=== PATIENT | female | born 1965 | race Caucasian/White ===

== ENCOUNTER 2021-05-26 15:33 | Emergency (ER) | payer BC, SELFPAY ==
[2021-05-26 16:10] VITALS: BP 121/93; PULSE 80; RESP 18; TEMP 36.8; O2SAT 98; BMI 40.1
[2021-05-26 16:41] VITALS: BP 121/93; PULSE 80; RESP 18; TEMP 36.8; O2SAT 98
--- NOTE | 2021-05-26 16:46 | HMH.EDUTC ---
[facility] [place] Disposition Clinical Impression: Bronchitis Sinusitis Qualifiers: Sinusitis location: unspecified location Chronicity: unspecified Qualified Code(s): J32.9 - Chronic sinusitis, unspecified Disposition: Home, Self-Care Condition on Discharge: Good Instructions: Sinusitis, DI for Sinusitis, Amoxicillin and Clavulanic Acid Additional Instructions: ? Start antibiotic today. Be sure to complete entire prescription even if feeling better ? Monitor temp. Tylenol every 4 hours as needed and / or ibuprofen every 6 hours as needed ( As long as your primary care physician has told you that it ok to take both. For fever/aches/pains ER if no less than 101 despite Tylenol or Motrin ? Humidifier/vaporizer or hot steamy shower ? Inhaler every 4-6 hours as needed like we discussed. If unsure how to use it, ask pharmacist to demonstrate how. Should help open airways and improve cough, wheezing, and shortness of breath ? Mucinex during the day for your cough and cough suppressant only at night. Be sure to drink lots of water. Insurance may not cover a prescriptions for mucinex. Might be cheaper to get 400mg tablets and take 2 tablet in the morning, mid-day and evening with lots of water. *Promethazine DM cough syrup will cause drowsiness. Use only at night. No driving, operating machinery or caring for small children after taking it *Tessalon Perles will not cause drowsiness but use at bedtime to help stop cough so that you may get some rest. *Start steroid today. Helps with inflammation therefore, cough and wheezing. Follow directions on the package. Reviewed side effects. Patient reports taking them before. Follow up IMMEDIATELY for new or worsening of symptoms OR no noticeable improvement over the next 48-72 hours. 911 immediately for any life threatening symptoms such as chest pain or difficulty breathing Prescriptions: guaiFENesin [Mucinex 600mg tablet] 600 mg PO Q12HP PRN #20 tab.er.12h PRN Reason: Congestion Transmission Status: Received by [facility] #[id number] Amoxicillin/Potassium Clav [Augmentin 875-125 Tablet] 1 tab PO Q12H 7 Days #14 tab Transmission Status: Received by [facility] #[id number] Referrals: Jay Guillaume [Primary Care Provider] - As needed Time of Disposition: 17:03 Medical Decision Making - Reyes Inquiry Pt receiving controlled substance: No Reyes was queried for this patient: No Vital Signs: 05/26/21 16:10 05/26/21 16:41 Temperature 98.2 F 98.2 F Temperature Source Oral Pulse Rate 80 Pulse Rate [Right Brachial] 80 Respiratory Rate 18 18 Blood Pressure 121/93 H Blood Pressure [Right Arm] 121/93 H Blood Pressure Mean [Right Arm] 102 Blood Pressure Source [Right Arm] Automatic Cuff Blood Pressure Position [Right Arm] Sitting 02 Sat by Pulse Oximetry 98 Oxygen Delivery Method Room Air Orders (Tests/Meds): ED MEDICATIONS Discontinued Medications Generic Name Dose Route Start Last Admin Trade Name Freq PRN Reason Stop Dose Admin Methylprednisolone Sodium Succinate 125 mg 05/26/21 17:02 05/26/21 17:10 Methylprednisolone Sod Succ 125mg Vial IM 05/26/21 17:03 125 mg ONCE ONE Administration Medical Decision Narrative: Patient state that she has taken Solu Medrol in the past without reaction or complications [facility] HPI - General Stated complaint: cold, tightness in chest Time Seen by Provider: 05/26/21 16:46 Mode of Arrival: Ambulatory Source of Information: Patient Limitations: No Limitations Description of Symptoms (Recalled from Triage Doc. by RN): PATIENT C/O CHEST CONGESTION/TIGHTNESS SINCE TUESDAY NIGHT HEENT Symptoms (Recalled from RN notes): No Resp Symptoms (Recalled from RN notes): Yes Skin Symptoms (Recalled from RN notes): No MS Symptoms (Recalled from RN notes): No Functional Status (Recalled from RN notes): WNL - History of Present Illness Provider Complaint: Patient state that she has been having sinus pain and pressure for over a
== END 2021-05-26 17:21 | disposition home or self-care (01) ==
PROVIDERS: Emergency Provider Nurse Practitioner; PCP Family Medicine
DX: J40 Bronchitis, not specified as acute or chronic (principal); J32.9 Chronic sinusitis, unspecified
CPT/HCPCS: 96372; 99202; G0463

== ENCOUNTER 2021-09-27 09:29 | Emergency (ER) | payer BC, SELFPAY ==
--- NOTE | 2021-09-27 11:19 | HMH.EDUTC ---
[facility] [place] Clinical Impression: Otitis media Qualifiers: Otitis media type: suppurative Chronicity: acute Laterality: bilateral Recurrence: non-recurrent Spontaneous tympanic membrane rupture: without spontaneous rupture Qualified Code(s): H66.003 - Acute suppurative otitis media without spontaneous rupture of ear drum, bilateral BPPV (benign paroxysmal positional vertigo) Qualifiers: Laterality: left Qualified Code(s): H81.12 - Benign paroxysmal vertigo, left ear Disposition: Home, Self-Care Condition on Discharge: Good Instructions: Middle Ear Infection, DI for Sinusitis, Benign Paroxysmal Positional Vertigo, Meclizine Additional Instructions: Drink plenty of fluids. Take tylenol or ibuprofen for pain or fever. Take the medications as directed. Follow up with your regular doctor. Your dizziness and other symptoms should get better with the medications, but make sure you follow up regardless. GO TO THE ER FOR ANY WORSENING SYMPTOMS The meclizine (antivert) will make you drowsy, so don't drive or operate heavy machinery after taking it. Prescriptions: Meclizine HCl [Antivert 25mg tablet] 25 mg PO Q6HP PRN #30 tab PRN Reason: Dizziness [facility] methylPREDNISolone [Medrol] 4 mg PO DIRECTED 6 Days #21 packet Transmission Status: Received by [email or web address] Azithromycin [Z-Neptali 250mg Tab*] 250 mg PO UD DOSE PK #6 tab Transmission Status: [facility] Referrals: Jay Guillaume [Primary Care Provider] - Forms: Work/School Release Time of Disposition: 11:52 Medical Decision Making - Medical Records Medical records reviewed: No: I reviewed the patient's medical records. - Reyes Inquiry Pt receiving controlled substance: No Vital Signs: 09/27/21 11:29 09/27/21 12:03 Temperature 97.6 F 97.6 F Temperature Source Temporal Artery Scan Pulse Rate 75 Pulse Rate [Left] 75 Respiratory Rate 20 20 Blood Pressure 137/70 Blood Pressure [Right Arm] 137/70 Blood Pressure Mean [Right Arm] 92 02 Sat by Pulse Oximetry 97 [facility] [place] - General Stated complaint: dizziness Time Seen by Provider: 09/27/21 11:19 - History of Present Illness Provider Complaint: She states that she has had bilateral ear pain, sinus congestion and dizziness for the past 3 days. She has had vertigo before and that is what she thinks is going on, but her symptoms were not this bad before. She denies any head ache, weakness, vision changes or other complaints. - Related Data Home Medications Medication Instructions Recorded Confirmed Milnacipran HCl [Savella] 25 mg PO DAILY 02/27/18 02/27/18 Triamterene/Hydrochlorothiazid 1 each PO DAILY 02/27/18 02/27/18 [Maxzide-25 tablet] Venlafaxine HCl [Effexor Xr] 37.5 mg PO DAILY 02/27/18 02/27/18 atenoloL [Atenolol 25mg Tab] 25 mg PO DAILY 02/27/18 02/27/18 estradioL [Estrace 1mg tablet] 1 mg PO DAILY 02/27/18 02/27/18 Previous Rx's Medication Instructions Recorded Brompheniramine/Pseudoephed/Dm 10 ml PO QID PRN #240 ml 02/27/18 [Bromfed DM Cough Syrup 5mL] Amoxicillin/Potassium Clav 1 tab PO Q12H 7 Days #14 tab 05/26/21 [Augmentin 875-125 Tablet] guaiFENesin [Mucinex 600mg tablet] 600 mg PO Q12HP PRN #20 tab.er.12h 05/26/21 Azithromycin [Z-Neptali 250mg Tab*] 250 mg PO UD DOSE PK #6 tab 09/27/21 Meclizine HCl [Antivert 25mg 25 mg PO Q6HP PRN #30 tab 09/27/21 tablet] methylPREDNISolone [Medrol] 4 mg PO DIRECTED 6 Days #21 09/27/21 packet Allergies Allergy/AdvReac Type Severity Reaction Status Date / Time No Known Allergies Allergy Verified 02/27/18 09:20 [facility] History - Hepatitis A Screen Attestation statement:: This patient has been screened for Hepatitis A risk factors. I have reviewed the patient's past medical history: Yes Medical History: Reports:: Depression, Hypertension, Migraine Denies:: Diabetes Mellitus Type 1, Diabetes Mellitus Type 2 Othe
[2021-09-27 11:29] VITALS: BP 137/70; PULSE 75; RESP 20; TEMP 36.4; O2SAT 97; BMI 38.2
[2021-09-27 12:03] VITALS: BP 137/70; PULSE 75; RESP 20; TEMP 36.4
== END 2021-09-27 12:04 | disposition home or self-care (01) ==
PROVIDERS: Emergency Provider Nurse Practitioner Family; PCP Family Medicine
DX: H66.003 Acute suppurative otitis media without spontaneous rupture of ear drum, bilateral (principal); H81.12 Benign paroxysmal vertigo, left ear; G43.709 Chronic migraine without aura, not intractable, without status migrainosus; I10 Essential (primary) hypertension; F33.1 Major depressive disorder, recurrent, moderate
CPT/HCPCS: 99202; G0463

== ENCOUNTER 2022-05-03 04:35 | Emergency (ER) | payer SELFPAY ==
[2022-05-03] VITALS (12 sets, daily range): BP systolic 104–144; BP diastolic 54–81; PULSE 67–77; RESP 12–21; TEMP 36.7; O2SAT 96–99; BMI 28.2; BMI 36.3
--- NOTE | 2022-05-03 04:36 | XR_ITS ---
PROCEDURE INFORMATION: Exam: XR Chest Exam date and time: 05/03/2022 4:49 AM Age: 56 years old Clinical indication: Sternal or substernal pain; Additional info: Cp TECHNIQUE: Imaging protocol: Radiologic exam of the chest. Views: 2 views. COMPARISON: No relevant prior studies available. FINDINGS: Lungs: 6 mm nodular density in the right lung base. No acute consolidation or airspace disease. Pleural spaces: No pleural effusion or pneumothorax. Heart/Mediastinum: No acute findings or cardiomegaly. Bones/joints: No acute findings. IMPRESSION: 1. No acute cardiopulmonary findings. 2. 6 mm nodular density in the right lung base. Comparison with old studies if available is recommended or follow-up document stability.
--- NOTE | 2022-05-03 04:37 | ECG_ITS ---
APPROVED REPORT Exam: Resting ECG HR:74 bpm ECG Measurements Heart Rate 74 AXES TN 160 P 55 QRSd 98 QRS 66 QT 411 T 38 QTc 438 Conclusion SINUS RHYTHM Isolated Q in III BORDERLINE ECG UNCONFIRMED REPORT Electronically signed by : Dao Angeles MD 05/04/2022 21:10:28
[2022-05-03 04:48] LABS: Coronavirus 19, PCR Not Detected (NotDetected); Influenza A, PCR Not Detected (NotDetected); Influenza B, PCR Not Detected (NotDetected)
[2022-05-03 04:58] LABS: Alanine Aminotransferase 23 U/L (12-78); Albumin Level 3.4 g/dl (3.5-5.0); Alkaline Phosphatase 81 U/L (38-126); Anion Gap 8.9 mEq/L (5-15); Aspartate Amino Transferase 31 U/L (14-36); Bilirubin,Unconjugated 0.3 mg/dL (0.0-1.1); Blood Urea Nitrogen 18 mg/dl (7-17); Calcium 8.8 mg/dl (8.4-10.2); Carbon Dioxide 27 mmol/L (22.0-30.0); Chloride 106 mmol/L (98-107); Creatinine Clearance Estimated 148 mL/min (50-200); Estimated Glomerular Filt Rate 87 ml/min (>60); GFR (African American) 106 ML/MIN (>60); Glucose 97 mg/dl (74-100); Magnesium 1.5 mg/dl (1.6-2.3); Potassium 3.9 mmoL/L (3.5-5.1); Sodium 138 mmol/L (136-145)
[2022-05-03 05:02] LABS: Bilirubin,Direct < 0.1 mg/dl (0.0-0.4); Bilirubin,Total < 0.1 mg/dl (0.2-1.3)
[2022-05-03 05:03] LABS: C-Reactive Protein 5.9 mg/L (0-4)
[2022-05-03 05:12] LABS: NT Pro Brain Natriuretic Pep. 220 pg/mL (0-125)
[2022-05-03 05:12] LABS: Basophils # 0.4 K/mm3 (0-0.2); Basophils % 6.6 % (0.1-2.0); Eosinophils # 0.4 K/mm3 (0.0-0.4); Eosinophils % 5.3 % (0.1-12.0); Hematocrit 40.4 % (37.0-47.0); Hemoglobin 13.9 g/dL (12.2-16.2); Lymphocytes % 30.5 % (10-50); Mean Corpuscular HGB Conc 34.4 g/dL (31.8-35.4); Mean Corpuscular Hemoglobin 30.1 pg (27.0-31.2); Mean Corpuscular Volume 87.6 fl (81-99); Mean Platelet Volume 9.4 fl (7.4-10.4); Monocytes # 0.6 K/mm3 (0.1-1.0); Neutrophils # 3.7 K/mm3 (1.8-7.8); Neutrophils % 55.1 % (37.0-80.0); Platelet Count 250 K/mm3 (142-424); Red Blood Count 4.61 M/mm3 (4.20-5.40); Red Cell Distribution Width 12.4 % (11.5-17.5); White Blood Count 6.6 K/mm3 (4.8-10.8)
[2022-05-03 05:16] LABS: Troponin I < 0.01 ng/ml (0.00-0.034)
[2022-05-03 05:17] LABS: Procalcitonin 0.066 ng/mL (0.0-2.0)
[2022-05-03 05:40] LABS: Erythrocyte Sedimentation Rate 14 mm/hr (0-30)
--- NOTE | 2022-05-03 07:08 | HMH.EDCP ---
ED Disposition Clinical Impression: Chest pain Qualifiers: Chest pain type: precordial pain Qualified Code(s): R07.2 - Precordial pain Disposition: Home, Self-Care Condition on Discharge: Good Instructions: DI for Chest Pain Additional Instructions: see card next week Prescriptions: Aspirin [Aspirin 81mg EC Tab] 81 mg PO DAILY #30 tab Transmission Status: Pending to [facility] Pantoprazole Sodium [Protonix 40mg tablet] 40 mg PO HS #30 tab Transmission Status: Pending to [facility] Referrals: Jay Guillaume [Primary Care Provider] - - Critical Care Critical Care Time: No Attestation: On 05/03/22, the high probability of a clinically significant, sudden or life threatening deterioration of the following system(s) required my full and direct attention, intervention and personal management. The time I documented below is in addition to time spent performing reported procedures but includes the following listed in this critical care notation. Medical Decision Making - Medical Records Medical records reviewed: Yes: I reviewed the patient's medical records. - Reyes Inquiry Pt receiving controlled substance: No Vital Signs: 05/03/22 04:41 05/03/22 05:21 05/03/22 05:30 Temperature 98.1 F Temperature Source Oral Pulse Rate 70 68 Pulse Rate [Apical] 77 Respiratory Rate 18 14 15 Blood Pressure 115/73 118/71 Blood Pressure [Right Arm] 144/81 H Blood Pressure Mean Blood Pressure Mean [Right Arm] 102 Blood Pressure Source [Right Arm] Automatic Cuff Blood Pressure Position [Right Arm] Sitting 02 Sat by Pulse Oximetry 99 99 96 Oxygen Delivery Method Room Air Room Air Room Air 05/03/22 06:00 05/03/22 06:30 05/03/22 07:00 Temperature Temperature Source Pulse Rate 70 67 70 Pulse Rate [Apical] Respiratory Rate 17 12 15 Blood Pressure 122/74 104/54 L 107/67 L Blood Pressure [Right Arm] Blood Pressure Mean Blood Pressure Mean [Right Arm] Blood Pressure Source [Right Arm] Blood Pressure Position [Right Arm] 02 Sat by Pulse Oximetry 97 97 97 Oxygen Delivery Method Room Air Room Air Room Air 05/03/22 07:30 05/03/22 08:30 05/03/22 09:00 Temperature Temperature Source Pulse Rate 72 77 67 Pulse Rate [Apical] Respiratory Rate 16 16 Blood Pressure 113/74 108/71 L 115/69 Blood Pressure [Right Arm] Blood Pressure Mean 82 80 82 Blood Pressure Mean [Right Arm] Blood Pressure Source [Right Arm] Blood Pressure Position [Right Arm] 02 Sat by Pulse Oximetry 97 96 96 Oxygen Delivery Method Room Air Room Air - Lab Data Lab results reviewed: Yes: I reviewed the patient's lab results. Lab Results 05/03/22 04:30: WBC 6.6, RBC 4.61, Hgb 13.9, Hct 40.4, MCV 87.6, MCH 30.1, MCHC 34.4, RDW 12.4, Plt Count 250, MPV 9.4, Neut % (Auto) 55.1, Lymph % (Auto) 30.5, [place] % (Auto) 9.0, Eos % (Auto) 5.3, Baso % (Auto) 6.6 H, Neut # (Auto) 3.7, Lymph # (Auto) 2.0, [place] # (Auto) 0.6, Eos # (Auto) 0.4, Baso # (Auto) 0.4 H, ESR 14 05/03/22 04:30: SARS-CoV-2 (PCR) Not detected, Influenza A Untype (PCR) Not detected, Influenza Type B (PCR) Not detected 05/03/22 04:38: Sodium 138, Potassium 3.9, Chloride 106, Carbon Dioxide 27, Anion Gap 8.9, BUN 18 H, Creatinine 0.70, Estimated Creat Clear 148, Estimated GFR 87, Est GFR ( Amer) 106, Glucose 97, Calcium 8.8, Magnesium 1.5 L, Total Bilirubin < 0.1 L, Direct Bilirubin < 0.1, Conjugated Bilirubin 0.0, Indirect Bilirubin 0.0, Unconjugated Bilirubin 0.3, AST 31, ALT 23, Alkaline Phosphatase 81, Troponin I < 0.01, C-Reactive Protein 5.9 H, NT-Pro-B Natriuret Pep 220 H, Total Protein 6.0 L, Albumin 3.4 L, Procalcitonin 0.066 05/03/22 07:51: Troponin I < 0.01 Result diagrams: 05/03/22 04:30 05/03/22 04:38 Orders (Tests/Meds): ED MEDICATIONS Discontinued Medications Generic Name Dose Route Start Last Admin Trade Name Freq PRN Reason Stop Dose Admin Aspirin 324 mg 05/03/22 04:38
--- NOTE | 2022-05-03 07:34 | CA_ITS ---
APPROVED REPORT EXAM: Comprehensive 2D, Doppler, and color-flow Echocardiogram Hazardous Substances Scientist: Jessenia Velasco RDCS Ht: 5 ft 6 in Wt: 225lbs BSA: 2.10 BP: 144/81 mmHg Indications: CP,HTN 2D Dimensions LVOT 1.65 cm (M/F) 1.5-2.5 M-Mode Dimensions RVDd 2.33 cm (0.9-2.6) LA Diam 4.04 cm (1.9-4.0) LVDd 4.79 cm (3.5-5.7) Ao Diam 2.62 cm (2.0-3.7) LVDs 3.10 cm (3.5-5.7) IVSd 1.17 cm (0.6-1.1) PWd 0.84 cm (0.6-1.1) EF (Teich) 64.60% FS 35.30% EDV (Teich) 107.00 mL ESV (Teich) 37.90 mL LV Diastology E Decel Time 227.00 (160-240 msec) E/A Ratio 0.8 MED E' 4.50 (< 7 cm/sec) E'/MED E' Ratio 12.96 (>14) LAT E' 8.40 (<10 cm/sec) E/LAT E' Ratio 6.94 (>14) Mitral Valve MV E Max Darnell. 58.00 (40-130 cm/s) MV A Velocity 73.00 (40-130 cm/s) E/A Ratio 0.79 MV Decel. Time 227.00 (160-240 ms) MV PHT 66.00 ms Left Ventricle Left atrium is mildly enlarged, ventricle is normal size, mild concentric left ventricular hypertrophy, estimated ejection fraction 55% with no regional wall motion abnormality, grade 1 diastolic dysfunction seen without tissue Doppler evidence of raise left atrial pressure. Right Ventricle Right atrium and right ventricle are normal size and contractility. Aortic Valve Aortic valve is minimally thickened and fibrosed there is no aortic stenosis or aortic insufficiency. Mitral Valve Mitral valve grossly normal, there is trace mitral regurgitation. Tricuspid Valve Tricuspid valve grossly normal, there is trace tricuspid regurgitation, tricuspid regurgitation jet velocity is inadequate for calculation of the right ventricular systolic pressure. Pulmonic Valve Pulmonic valve is poorly visualized. Great Vessels Aortic root is normal size. Inferior vena cava is normal size with normal inspiratory collapse. Pericardium No significant pericardial effusion noted. Conclusion 1. Mildly enlarged left atrium, normal left ventricular size mild concentric left ventricular hypertrophy, estimated ejection fraction 55% with no regional wall motion abnormality, grade 1 diastolic dysfunction seen without tissue Doppler evidence of raise left atrial pressure. 2. Trace mitral and tricuspid regurgitation. 3. No significant pericardial effusion. 4. Inferior vena cava is poorly visualized. Electronically signed by : Kei Smith MD 05/03/2022 19:57:30
--- NOTE | 2022-05-03 07:46 | PC.NURSE ---
rounded on pt at this time, pt sitting up on side of bed, family at BS. Pt states no needs at this time. Advised pt we would be getting second set of heart enzymes soon.
--- NOTE | 2022-05-03 07:53 | PC.NURSE ---
second troponin drawn and sent to lab at this time
--- NOTE | 2022-05-03 08:03 | PC.NURSE ---
per dr. martinez cardiololgy staff is aware of consult order.
--- NOTE | 2022-05-03 08:03 | PC.NURSE ---
notified pt of echo order and that staff would be down soon for that test, explained to pt it is an ultrasound of heart. Pt in shirt, pt reports she is okay in her shirt instead of gown. Also notified pt of cardiology consult and that cardiology staff would be down to see.
--- NOTE | 2022-05-03 08:17 | PC.NURSE ---
CV lab staff at for echo.
[2022-05-03 08:26] LABS: Troponin I < 0.01 ng/ml (0.00-0.034)
--- NOTE | 2022-05-03 08:40 | PC.NURSE ---
MARIO Silva at BS
--- NOTE | 2022-05-03 08:53 | PC.NURSE ---
jesus garrido saw pt states he will get ahliliam of dr. martinez to notify him of cardiology recommendations for pt.
--- NOTE | 2022-05-03 09:14 | HMH.CNCARD ---
History of Present Illness Consult date: 05/03/22 Requesting physician: Henry Mendez Consult reason: chest pain Chief complaint: Left arm numbness, left shoulder pain Additional Medical History:: 1. Hypertension 2. Depression 3. Family history of early heart disease in her mother in her mid 30s 4. Overweight History of present illness: 56-year-old white female presented to the emergency department for evaluation of left arm numbness with associated left shoulder blade discomfort described as sharp in nature. Patient denies any anterior chest discomfort, nausea, vomiting or diaphoresis. Symptoms continued for about an hour prior to arrival. She was given nitroglycerin and transdermal nitroglycerin with slow improvement in symptoms. She does have a history of degenerative disc disease in her lumbar area but is unaware of any issues with her neck or prior cervical radiculopathy. Work-up in the ER reveals troponins normal x2, EKG sinus with no acute ST segment changes and preliminary echocardiogram today shows preserved ejection fraction with no significant valve disease or wall motion abnormalities. She does complain of a headache from the nitroglycerin. Non-smoker Nondrinker Nondiabetic No history of treatment for hyperlipidemia [facility] History Medical History: Reports:: Depression, Hypertension, Migraine Denies:: Diabetes Mellitus Type 1, Diabetes Mellitus Type 2 *Have you ever received a pneumonia vaccine?: No *Have you received a flu vaccine this season?: No Other Surgeries: Yes: Cholecystectomy, Other (hysterectomy, exploratory reproductive) - *Social History Smoking Status: Never smoker Alcohol Intake: never *Occupational Status:: other *Travel in the last 8 weeks: Inside the [place] - Psychiatric History Pschychiatric History:: Reports:: Depression Family Hx:: Coronary Artery Disease Meds Home Medications Medication Instructions Recorded Confirmed Type Buspirone HCl [Buspar 10mg 10 mg PO BID 05/03/22 05/03/22 History tablet] Diclofenac Sodium [Diclofenac 75mg 75 mg PO BID 05/03/22 05/03/22 History Tab] Fluoxetine HCl [Prozac 20mg 20 mg PO DAILY 05/03/22 05/03/22 History Capsule] Gabapentin 300 mg PO DAILY 05/03/22 05/03/22 History Glucosam/Damon-Msm1/C/Vladimir/Bosw 1 each PO DAILY 05/03/22 05/03/22 History [Osteo Bi-Flex Caplet] Hydrocodone/Acetaminophen 1 each PO Q6HP PRN 05/03/22 05/03/22 History [Hydrocodone-Acetamin 5-325 mg] Magnesium Sulfate 100 mg PO DAILY 05/03/22 05/03/22 History Phentermine HCl 37.5 mg PO DAILY 05/03/22 05/03/22 History Promethazine HCl [Phenergan 25mg 25 mg PO Q6HP PRN 05/03/22 05/03/22 History tab] SUMAtriptan succinate [Imitrex] 25 mg PO Q6HP PRN 05/03/22 05/03/22 History Terbinafine HCl [Athlete's Foot AF] 15 gm TP DAILY 05/03/22 05/03/22 History Tizanidine HCl 2 mg PO DAILY 05/03/22 05/03/22 History Triamterene/Hydrochlorothiazid 1 each PO DAILY 05/03/22 05/03/22 History [Triamterene-Hctz 50-25 mg Cap] Venlafaxine HCl [Effexor Xr] 75 mg PO DAILY 05/03/22 05/03/22 History Zolpidem Tartrate [Ambien 10mg 10 mg PO HSP PRN 05/03/22 05/03/22 History tablet] atenoloL [Atenolol 25mg Tab] 25 mg PO DAILY 05/03/22 05/03/22 History diazePAM [Valium 5mg tablets] 5 mg PO DAILY 05/03/22 05/03/22 History estradioL [Estradiol] 2 mg PO DAILY 05/03/22 05/03/22 History hydrOXYzine HCL [Hydroxyzine HCl] 25 mg PO DAILY 05/03/22 05/03/22 History Allergies Allergy/AdvReac Type Severity Reaction Status Date / Time No Known Allergies Allergy Verified 02/27/18 09:20 Exam Vital signs and Labs for Last 24 Hours: Temp Pulse Resp BP Pulse Ox 98.1 F 72 15 113/74 97 05/03/22 04:41 05/03/22 07:30 05/03/22 07:00 05/03/22 07:30 05/03/22 07:30 Laboratory Results - last 24 hr 05/03/22 04:30: WBC 6.6, RBC 4.61, Hgb 13.9, Hct 40.4, MCV 87.6, MCH 30.1, MCHC 34.4, RDW 12.4, Plt Count 250, MPV 9.4, Neut % (Auto) 55.1, Lymph % (Aut
--- NOTE | 2022-05-03 09:20 | PC.NURSE ---
rounded on pt, pt sitting up in bed, at BS. Pt states no needs at this time, notified pt we are waiting to here from Dr. Mendez regarding d/c. pt verbalized understanding
--- NOTE | 2022-05-03 09:44 | PC.NURSE ---
rounded on patient,asked if needed anything,pt stated no needs at this time
--- NOTE | 2022-05-03 09:58 | PC.NURSE ---
waiting business administration instructor back from Dr. martinez, updated pt.
== END 2022-05-03 10:40 | disposition home or self-care (01) ==
PROVIDERS: Emergency Provider Emergency Medicine; PCP Family Medicine
DX: R07.2 Precordial pain (principal); Z79.890 Hormone replacement therapy; Z79.899 Other long term (current) drug therapy
CPT/HCPCS: 71046; 80048; 80076; 83735; 83880; 84145; 84484; 85025; 85651; 86140; 93005; 93306; 96365; 99284; C9803; U0003; U0005

== ENCOUNTER 2024-12-17 15:01 | Outpatient (CLI) | payer BC, SELFPAY ==
[2024-12-17] MEDS: SODIUM CHLORIDE 0.9% 50ML BAG 50 ML IV (15:24)
[2024-12-17] MEDS: METHYLPREDN SOD SUCC 1,000 MG in 0.9 % SODIUM CHLORIDE 250 ML 500 MG IV (15:24)
[2024-12-17 15:25] VITALS: BP 116/58; PULSE 78; RESP 18; TEMP 36.4; O2SAT 97
[2024-12-17 16:08] VITALS: BP 110/67; PULSE 68; RESP 18; O2SAT 97
== END 2024-12-17 16:08 | disposition home or self-care (01) ==
LOC: INF 15:03
PROVIDERS: PCP Family Medicine; Visit Provider Psychiatry & Neurology Neurology
DX: R07.1 Chest pain on breathing (principal)
CPT/HCPCS: 96365; J2919

== ENCOUNTER 2024-12-18 14:25 | Outpatient (CLI) | payer BC, SELFPAY ==
[2024-12-18] MEDS: METHYLPREDN SOD SUCC 1,000 MG in 0.9 % SODIUM CHLORIDE 250 ML 500 MG IV (14:58)
[2024-12-18] MEDS: SODIUM CHLORIDE 0.9% 50ML BAG 50 ML IV (14:58)
[2024-12-18 15:00] VITALS: BP 110/58; PULSE 81; RESP 18; O2SAT 96
[2024-12-18 15:47] VITALS: BP 107/62; PULSE 73; RESP 18; O2SAT 95
== END 2024-12-18 15:47 | disposition home or self-care (01) ==
LOC: INF 14:25
PROVIDERS: PCP Family Medicine; Visit Provider Family Medicine
DX: D50.9 Iron deficiency anemia, unspecified (principal)
CPT/HCPCS: 96365; J2919

== ENCOUNTER 2024-12-19 16:03 | Outpatient (CLI) | payer BC, SELFPAY ==
[2024-12-19 16:13] VITALS: BP 137/73; PULSE 56; RESP 18; TEMP 36.7; O2SAT 98
[2024-12-19] MEDS: METHYLPREDN SOD SUCC 1,000 MG in 0.9 % SODIUM CHLORIDE 250 ML 500 MG IV (16:13)
[2024-12-19] MEDS: 0.9 % SODIUM CHLORIDE 50 ML 100 ML IV (16:13)
[2024-12-19] MEDS: SODIUM CHLORIDE 0.9% 10ML FLUSH SYRINGE 10 ML IV (16:13)
[2024-12-19 16:53] VITALS: BP 142/62; PULSE 63; RESP 18; O2SAT 98
== END 2024-12-19 16:55 | disposition home or self-care (01) ==
LOC: INF 16:04
PROVIDERS: PCP Family Medicine; Visit Provider Psychiatry & Neurology Neurology
DX: H46.9 Unspecified optic neuritis (principal)
CPT/HCPCS: 96365; J2919

== ENCOUNTER 2025-01-01 16:37 | Outpatient (CLI) | payer BC, SELFPAY ==
--- NOTE | 2025-01-01 16:39 | MM_ITS ---
PROCEDURE INFORMATION: Exam: MG Bilateral Screening 3D Mammography Exam date and time: 01/01/2025 4:44 PM Age: 59 years old Clinical indication: Screening examination TECHNIQUE: Imaging protocol: Bilateral Screening tomosynthesis and 2D mammography including computer-aided detection (CAD) when performed. COMPARISON: No relevant prior studies available. FINDINGS: MAMMOGRAPHY: Breast composition: There are scattered areas of fibroglandular density. Mass: 0.7 cm ovoid mass in the posterior left central breast slightly lateral to the nipple line . The finding may reflect a benign intramammary lymph node Architectural distortion: None. Calcifications: No suspicious calcifications. Asymmetric density: None. Skin thickening: None. Axillary adenopathy: None. IMPRESSION: Patient to be recalled for spot compression views of the left breast in the CC and MLO projections, a full 90 degree lateral view, and left breast ultrasound for further evaluation of a left breast mass. ASSESSMENT: BI-RADS Category 0: Incomplete- Need Additional Imaging Evaluation
== END 2025-01-01 23:59 | disposition home or self-care (01) ==
LOC: RAD 16:38
PROVIDERS: PCP Family Medicine; Visit Provider Family Medicine
DX: Z12.31 Encounter for screening mammogram for malignant neoplasm of breast (principal)
CPT/HCPCS: 77063; 77067

== ENCOUNTER 2025-01-30 14:43 | Outpatient (CLI) | payer BC, SELFPAY ==
--- NOTE | 2025-01-30 14:46 | US_ITS ---
FINAL REPORT TECHNIQUE: Sonographic images of the thyroid gland were obtained in the longitudinal and transverse planes. CLINICAL HISTORY: NEOPLASM THYROID GLAND COMPARISON: None FINDINGS: The right lobe measures 1.2 x 5.3 x 2.4 cm. The right lobe is homogeneous. There are multiple nodules within the right lobe, some are cystic and some are solid. The largest mixed cystic and solid nodule measures 7 mm. The left lobe measures 1.2 x 4.6 x 1.6 cm. The left lobe is homogeneous. There are multiple nodules within the left lobe. The largest is a hypoechoic 15 mm lower pole nodule that is wider than tall. This is a TI-RADS category 4. The isthmus measures 4 mm. This is normal. IMPRESSION: Bilateral thyroid nodules, most of which are subcentimeter or cystic. However, there is a 15 mm TI-RADS category 4 nodule present in the left lower lobe. FNA recommended. Reviewed, Interpreted and Dictated by Carlyn Dumont MD Transcribed by Dacia Amin Authenticated and [facility]
--- NOTE | 2025-01-30 14:46 | MM_ITS ---
PROCEDURE INFORMATION: Exam: MG Left Diagnostic Breast Tomosynthesis Exam date and time: 01/30/2025 2:46 PM Age: 59 years old Clinical indication: Callback for a mass in the left breast. TECHNIQUE: Imaging protocol: Left Diagnostic tomosynthesis and 2D mammography including computer-aided detection (CAD) when performed. Unilateral or bilateral exam. COMPARISON: MG MM DIG SCREENING MAMM BI W/CAD 01/01/2025 4:44 PM FINDINGS: MAMMOGRAPHY: Breast composition: There are scattered areas of fibroglandular density. Breast mammogram findings: Low-density ovoid mass in the far posterior left breast measures 0.7 cm and is located at the approximate 6 o'clock axis. There is no suspicious distortion or calcifications. IMPRESSION: Low density mass in the left far posterior breast warrants additional evaluation with targeted ultrasound of the left breast in the retroareolar region and approximate 4 to 8 o'clock axis, posterior depth. ASSESSMENT: BI-RADS Category 0: Incomplete- Need Additional Imaging Evaluation.
== END 2025-01-30 23:59 | disposition home or self-care (01) ==
LOC: RAD 14:43
PROVIDERS: PCP Family Medicine; Visit Provider Family Medicine
DX: E04.2 Nontoxic multinodular goiter (principal); N63.21 Unspecified lump in the left breast, upper outer quadrant; R92.8 Other abnormal and inconclusive findings on diagnostic imaging of breast
CPT/HCPCS: 76536; 77061; 77065; G0279

== ENCOUNTER 2025-02-11 14:53 | Outpatient (CLI) | payer BC, SELFPAY ==
--- NOTE | 2025-02-11 14:57 | US_ITS ---
PROCEDURE INFORMATION: Exam: US Left Breast, Complete Exam date and time: 02/11/2025 2:54 PM Age: 59 years old Clinical indication: Callback from screening for left breast mass TECHNIQUE: Imaging protocol: Complete ultrasound of all four quadrants of the left breast and the retroareolar regions, including ultrasound of the axilla when performed. COMPARISON: MG MM DIG MAMM DX UNILAT LT CAD 01/30/2025 2:46 PM FINDINGS: ULTRASOUND: Breast ultrasound findings: Left breast ultrasound: At 5 o'clock 5 cm from nipple there is a benign clustered microcysts measuring 1 cm corresponding to the mammographic finding in question. At 4 o'clock 6 cm from the nipple there is an additional benign cluster of cysts. Benign cluster of cysts at 9 o'clock 3 cm from nipple. No solid or suspicious masses. No abnormal lymph nodes in the axilla. IMPRESSION: Benign cysts in the left breast.There are no findings suspicious for malignancy. Annual mammographic screening is recommended unless otherwise clinically indicated. ASSESSMENT: BI-RADS Category 2: Benign.
== END 2025-02-11 23:59 | disposition home or self-care (01) ==
LOC: RAD 14:53
PROVIDERS: PCP Family Medicine; Visit Provider Family Medicine
DX: N60.12 Diffuse cystic mastopathy of left breast (principal)
CPT/HCPCS: 76641

== ENCOUNTER 2025-02-15 09:48 | Outpatient (CLI) | payer BC, SELFPAY ==
--- NOTE | 2025-02-15 09:52 | US_ITS ---
FINAL REPORT CLINICAL HISTORY: LEFT THYROID NODULE - TANESHA MARTIN FINDINGS: Ultrasound guided thyroid biopsy. HISTORY: Thyroid mass. PROCEDURE: After informed consent was obtained and a time-out was performed, the patient was prepped and draped in usual sterile fashion over the anterior neck. Utilizing local anesthesia and sterile technique with a 25-gauge needle, access to the lesion was obtained. Four passes were made. The patient received no conscious sedation. The patient tolerated procedure well and left the department in good condition. IMPRESSION: Status post ultrasound guided biopsy of a thyroid nodule without immediate complication. Reviewed, Interpreted and Dictated by Carlyn Dumont MD Transcribed by MARIO Simms Authenticated and [facility]
== END 2025-02-15 23:59 | disposition home or self-care (01) ==
LOC: RAD 09:49
PROVIDERS: PCP Family Medicine; Visit Provider Family Medicine
DX: E04.1 Nontoxic single thyroid nodule (principal)
CPT/HCPCS: 10005

== ENCOUNTER 2025-02-15 11:25 | Emergency (ER) | payer BC, SELFPAY ==
[2025-02-15 11:25] VITALS: BP 142/62; PULSE 70; RESP 18; TEMP 36.7; O2SAT 100; BMI 33.5
--- NOTE | 2025-02-15 11:58 | XR_ITS ---
FINAL REPORT CLINICAL HISTORY: R knee pain, feels dislocated FINDINGS: AP and lateral views of the right tibia and fibula were obtained. There is no prior exam for comparison. There is no acute fracture of the right tibia or fibula. The knee and ankle appear intact. The soft tissues are normal. IMPRESSION: No acute osseous abnormality of the right tibia or fibula. Reviewed, Interpreted and Dictated by Carlyn Dumont MD Transcribed by Harriet Olvera Authenticated and [facility]
--- NOTE | 2025-02-15 11:58 | XR_ITS ---
FINAL REPORT CLINICAL HISTORY: R knee pain, feels dislocated FINDINGS: Two views of the right femur were obtained. There is no prior exam for comparison. There is no acute fracture or dislocation. Mild degenerative disease of the hip. There is no acute soft tissue abnormality. IMPRESSION: Degenerative change of the right hip without acute abnormality identified. Reviewed, Interpreted and Dictated by Carlyn Dumont MD Transcribed by Harriet Olvera Authenticated and [facility]
--- NOTE | 2025-02-15 11:58 | XR_ITS ---
FINAL REPORT CLINICAL HISTORY: R knee pain, feels dislocated FINDINGS: AP, lateral and oblique views of the right knee were obtained. There is no prior exam for comparison. There is no acute osseous abnormality of the right knee. The joint space is preserved. The soft tissues are normal. There is no joint effusion. IMPRESSION: No acute osseous abnormality of the right knee. Reviewed, Interpreted and Dictated by Carlyn Dumont MD Transcribed by Harriet Olvera Authenticated and [facility]
[2025-02-15 12:01] VITALS: BP 100/65; PULSE 65; O2SAT 99
[2025-02-15] MEDS: KETOROLAC 30MG/ML VIAL 30 MG IM (12:13)
[2025-02-15] MEDS: ACETAMINOPHEN 500MG TAB 1000 MG PO (12:13)
[2025-02-15] MEDS: ONDANSETRON 4MG ODT 4 MG SL (12:13)
[2025-02-15] MEDS: MORPHINE 2MG/ML SYRINGE 4 MG IM (12:14)
[2025-02-15 13:05] VITALS: BP 146/79; PULSE 71; O2SAT 97
--- NOTE | 2025-02-15 13:47 | HMH.EDGENADL ---
Discharge Plan Disposition Patient Disposition: Home, Self-Care Condition: Good Prescriptions Prescriptions: New diclofenac sodium [Voltaren Arthritis Pain] 1 % gel 2 g topical QID Qty: 50 0RF Rx Instructions: apply to single elbow, wrist or hand; for hand includes palm/fingers/back of hand No Action venlafaxine 75 MG capsule,extended release 24hr 75 mg PO DAILY triamterene-hydrochlorothiazid 1 EACH capsule 1 each PO DAILY hydrocodone-acetaminophen 1 EACH tablet 1 each PO Q6HP PRN (Reason: pain) sumatriptan succinate 25 MG tablet 25 mg PO Q6HP PRN (Reason: migraines) atenolol 25 MG tablet 25 mg PO DAILY buspirone 10 MG tablet 10 mg PO BID promethazine 25 MG tablet 25 mg PO Q6HP PRN (Reason: Nausea And Vomiting) estradiol 2 MG tablet 2 mg PO DAILY zolpidem 10 MG tablet 10 mg PO HSP PRN (Reason: Insomnia) fluoxetine 20 MG capsule 20 mg PO DAILY diazepam 5 MG tablet 5 mg PO DAILY [id number]-[id number]-bosw 1 EACH tablet 1 each PO DAILY phentermine 37.5 MG tablet 37.5 mg PO DAILY gabapentin 300 MG capsule 300 mg PO DAILY diclofenac sodium 75 MG tablet,delayed release (DR/EC) 75 mg PO BID hydroxyzine HCl 25 MG tablet 25 mg PO DAILY terbinafine HCl 15 GM cream 15 gm TP DAILY tizanidine 2 MG tablet 2 mg PO DAILY magnesium sulfate 100 MG capsule 100 mg PO DAILY aspirin 81 MG tablet,delayed release (DR/EC) 81 mg PO DAILY Qty: 30 0RF pantoprazole 40 MG tablet,delayed release (DR/EC) 40 mg PO HS Qty: 30 0RF Referrals Follow up/Referrals: Calvin Souza DO [Staff Physician] - See instructions Jay Guillaume [Primary Care Provider] - See instructions Activity Restrictions/Add. Instructions Additional Instructions/Restrictions: You were evaluated in the emergency department today. Please follow-up closely with orthopedics. Contact their office to schedule an appointment. Please picker / packer your prescription and to use as needed for pain. Continue taking your other medications at home as needed for pain as well. Return to the emergency department for new or worsening symptoms. Clinical Impressions Clinical Impression: Acute pain of right knee Stand Alone Forms Stand Alone Forms: Work/School Release Instructions Patient Instructions: DI for Knee Pain Print Language Print Language: Citizen Of [place] Discharge ED Provider: Ying Valdez General Adult HPI General Chief complaint: Extremity Injury, Lower Stated complaint: right knee dislocated Time Seen by Provider: 02/15/25 11:54 Mode of Arrival: Ambulatory Source of Information: Patient Description of Symptoms (Recalled from ER Triage Doc. by RN): pt to the ED with right knee pain and decrease in ROM. pt reports she has dislocated her knee multiple times in the past but hasnt been able to get a referral for ortho yet. pt denies any fall or injury History of Present Illness HPI narrative: This patient is a 59-year-old female with history of recurrent issues with her right knee, hypertension, migraines, and depression presenting to the emergency department for evaluation with concern for right knee pain. Patient states that she has had issues with the right knee in the past but has not yet seen Ortho. She notes that she feels like if she moves it a certain way or twisted underneath her a certain way then symptoms it will be caught like its dislocated, and someone has to help her straighten it out to relieve the pain and the feeling of it being out of place. This happened about 45 minutes prior to arrival and no one has been able to help get it back in place. She has severe pain in her right knee. No pain elsewhere, no numbness, tingling, or other concerns. No skin color changes, redness, warmth, or other issues. No falls or trauma Related Data Home Medications ?Medication ?Instructions ?Recorded ?Confirmed atenolol 25 mg tablet 25 mg PO DAILY High blood pressure 05/03/22 12/19/24 buspirone 10 mg tablet 10 mg PO BID Depression 05/03/22 12/19/24 diazepam 5 mg tablet 5 mg PO DAILY Anxiety 05/03/22 12/19/24 diclofenac sodium 75 mg 75 mg PO BID Pain 05/03/22 12/19/24 tablet,delayed release estradiol 2 mg tablet 2 mg PO DAILY estrogen replacement 05/03/22 12/19/24 fluoxetine 20 mg capsule 20 mg PO DAILY Depression 05/03/22 12/19/24 gabapentin 300 mg capsule 300 mg PO DAILY nerve pain 05/03/22 12/19/24 glucosamine 750 [id number] 1 each PO DAILY joint health 05/03/22 12/19/24 no1 644 mg-C 30 mg-gloria 1 mg tablet hydrocodone 5 mg-acetaminophen 325 1 each PO Q6HP PRN pain 05/03/22 12/19/24 mg tablet hydroxyzine HCl 25 mg tablet 25 mg PO DAILY Anxiety 05/03/22 12/19/24 magnesium sulfate 100 mg capsule 100 mg PO DAILY Supplement 05/03/22 12/19/24 phentermine 37.5 mg tablet 37.5 mg PO DAILY Weight loss 05/03/22 12/19/24 promethazine 25 mg tablet 25 mg PO Q6HP PRN Nausea And 05/03/22 12/19/24 Vomiting sumatriptan succinate 25 mg tablet 25 mg PO Q6HP PRN migraines 05/03/22 12/19/24 terbinafine HCl 1 % topical cream 15 gm topical DAILY foot infection 05/03/22 12/19/24 tizanidine 2 mg tablet 2 mg PO DAILY muscle relaxant 05/03/22 12/19/24 triamterene 50 1 each PO DAILY High blood pressure 05/03/22 12/19/24 mg-hydrochlorothiazide 25 mg capsule venlafaxine 75 mg capsule,extended 75 mg PO DAILY Depression 05/03/22 12/19/24 release 24 hr zolpidem 10 mg tablet 10 mg PO HSP PRN Insomnia 05/03/22 12/19/24 Previous Rx's ?Medication ?Instructions ?Recorded aspirin 81 mg tablet,delayed 81 mg PO DAILY #30 tabs 05/03/22 release pantoprazole 40 mg tablet,delayed 40 mg PO HS #30 tabs 05/03/22 release diclofenac sodium 1 % topical gel 2 g topical QID #50 grams 02/15/25 (Voltaren Arthritis Pain) Allergies Allergy/AdvReac Type Severity Reaction Status Date / Time No Known Allergies Allergy Verified 12/19/24 16:14 [facility] Disclaimer: The information contained in this section may have been updated after the patient was seen, as this information can be updated by other users. Medical History Depression HTN (hypertension) Migraine Surgical History H/O exploratory laparotomy History of hysterectomy History of cholecystectomy Family History Other Family history of hypertension Social History Smoking Status: Never smoker alcohol intake: never current occupational status: other Travel in the last 8 weeks?: Inside the [place] Have you lived/traveled outside [place] in past 30 days?: No Contact w/someone who lives/traveled outside US past 30 days?: No Exposure to someone with infectious disease in past 14 days?: No Do you have a fever (greater than 100.4 F or 38 C)?: No Have you tested positive for COVID-19?: No Exposed to someone with COVID-19 in past 14 days?: No Do you have a sore throat?: No Do you have a cough?: No Do you have any weakness?: No Do you have any diarrhea?: No Are you experiencing any unusual bleeding?: No Do you have any muscle aches/pain?: No Do you have any abdominal pain?: No Are you experiencing loss of taste or smell?: No Other Medical History Have you received the Flu Vaccine for this season: No Have you received the Pneumonia Vaccine: No ROS Obtained: Yes All systems reviewed & no additional complaints except as documented Physical Exam General General appearance: alert and in no apparent distress Head Head exam: atraumatic and normocephalic Eye Eye exam: Present normal appearance, PERRL and EOMI ENT ENT exam: Present normal exam, normal oropharynx, mucous membranes moist and normal external ear exam Neck Neck exam: Present normal inspection, full ROM and trachea midline; Absent tenderness Chest Chest inspection: Present normal inspection and symmetric chest wall rise; Absent tenderness Respiratory Respiratory exam: Present normal lung sounds bilaterally; Absent respiratory distress, wheezes, stridor or accessory muscle use Cardiovascular Cardiovascular exam: Present regular rate and normal rhythm Abdominal Exam Abdominal exam: Present soft; Absent distention, tenderness or guarding Extremities Exam Extremities exam: Present normal capillary refill and other (Limited range of motion of the right knee secondary to pain and apprehension. Some patellar apprehension noted but it does not feel like anything is obviously dislocated. No redness, warmth, or significant joint swelling. Neurovascularly intact); Absent full ROM or edema Back Exam Back exam: Present normal inspection and full ROM; Absent tenderness Neurological Exam Neurological exam: Present alert, oriented X3 and CN II-XII intact; Absent motor sensory deficit Psychiatric Psychiatric exam: Present normal affect and normal mood Skin Skin exam: Present warm and dry Medical Decision Making Medical Records Medical records reviewed: Yes I reviewed the patient's medical records. Screening: Per USPSTF and CDC recommendations, given the prevalence of disease in our region, it is our hospital?s policy to screen for HIV and viral Hepatitis for all patients aged 18 and over and those with ongoing risk factors. Reyes Inquiry Pt receiving controlled substance: No Vital Signs: 02/15/25 11:25 02/15/25 12:01 02/15/25 13:05 Temperature 98.1 F Temperature Source Oral Pulse Rate 65 71 Pulse Rate [Left Radial] 70 Respiratory Rate 18 Blood Pressure 100/65 L 146/79 H Blood Pressure [Right Arm] 142/62 H Blood Pressure Mean 83 Blood Pressure Mean [Right Arm] 88 Blood Pressure Source Blood Pressure Source [Right Arm] Automatic Cuff Blood Pressure Position Blood Pressure Position [Right Arm] Sitting 02 Sat by Pulse Oximetry 100 99 97 Oxygen Delivery Method Room Air Room Air 02/15/25 14:00 02/15/25 15:12 Temperature 98.6 F Temperature Source Oral Pulse Rate 62 87 Pulse Rate [Left Radial] Respiratory Rate 17 Blood Pressure 130/70 145/87 H Blood Pressure [Right Arm] Blood Pressure Mean Blood Pressure Mean [Right Arm] Blood Pressure Source Automatic Cuff Blood Pressure Source [Right Arm] Blood Pressure Position Sitting Blood Pressure Position [Right Arm] 02 Sat by Pulse Oximetry 95 Oxygen Delivery Method Room Air Room Air Lab Data Lab results reviewed: Yes I reviewed the patient's lab results. Orders (Tests/Meds): ED MEDICATIONS Discontinued Medications Generic Name Dose Route Start Last Admin Trade Name Sunny PRN Reason Stop Dose Admin Acetaminophen 1,000 mg 02/15/25 11:57 02/15/25 12:13 Acetaminophen 500mg Tab PO 02/15/25 11:58 1,000 mg ONCE ONE Administration Ketorolac Tromethamine 30 mg 02/15/25 11:57 02/15/25 12:13 Ketorolac 30mg/Ml Vial IM 02/15/25 11:58 30 mg ONCE ONE Administration Morphine Sulfate 4 mg 02/15/25 11:57 02/15/25 12:14 Morphine 2mg/Ml Syringe IM 02/15/25 11:58 4 mg ONCE ONE Administration Ondansetron HCl 4 mg 02/15/25 11:57 02/15/25 12:13 Ondansetron 4mg Odt SL 02/15/25 11:58 4 mg ONCE ONE Administration ORDERS Category Date Time Status Femur XR right 2 views [XR femur RT 2V] Stat Exams 02/15/25 11:58 Completed Knee XR right 3 views [XR knee RT 3V] Stat Exams 02/15/25 11:58 Completed Tibia/fibula XR right 2 views [XR tibia fibula RT 2V] Exams 02/15/25 11:58 Completed Stat Medical Decision Narrative: In summary, this patient is a 59-year-old female presenting to the Emergency Department for evaluation of right knee pain and feeling like it dislocated. Differential diagnoses considered include but are not limited to ligamentous instability, dislocation, patellar dislocation, meniscal tear, cartilaginous injury, musculoskeletal strain/sprain. Ruling out the most morbid conditions drove assessment. It should be noted patient's history includes obesity, hypertension which are not at goal therapy. This complicates all aspects of care by increasing patient's risk for morbidity. On exam, the patient is well-appearing. She is uncomfortable appearing, however, holding her right knee in near full extension, but has limited range of motion secondary to apprehension and feelings of instability. No redness, warmth, or significant joint swelling. She is neurovascularly intact distally. Workup included x-rays of the right femur, knee, and tib-fib. She is given IM Toradol, IM morphine, and oral Tylenol and Zofran for symptomatic improvement. I independently interpreted x-ray prior to the radiologist read and noted no dislocation or acute fracture. Please see their read for final interpretation. On reassessment, the patient is resting comfortably and feels a lot better. She remains neurovascularly intact. She does have intact range of motion of the knee that is now improved. I feel she may have patellar apprehension related to patellar dislocation and spontaneous reduction, as she states that it feels like it is going out and coming back in. Unclear at this time, but right now exam looks good. I feel she is appropriate for discharge with close follow-up with orthopedics. She was given knee brace to have as needed for support and instability. Strict return precautions were given Critical Care Critical Care Time Critical Care Time: No
[2025-02-15 14:00] VITALS: BP 130/70; PULSE 62; O2SAT 95
[2025-02-15 15:12] VITALS: BP 145/87; PULSE 87; RESP 17; TEMP 37; O2SAT 98
== END 2025-02-15 15:14 | disposition home or self-care (01) ==
PROVIDERS: Emergency Provider Emergency Medicine; PCP Family Medicine
DX: M25.561 Pain in right knee (principal)
CPT/HCPCS: 73552; 73562; 73590; 96372; 99284; J1885; J2270; Q0162